=== PATIENT | male | born 1965 | race Caucasian/White ===

== ENCOUNTER 2018-10-17 12:19 | Emergency (ER) | payer SELFPAY ==
[2018-10-17 12:36] VITALS: BP 140/83
--- NOTE | 2018-10-17 14:14 | ED ---
Upper Extremity Pain - HPI Summary HPI Summary: 52 yr old male with right elbow trauma a week ago. He fell directly on his left olecrenon against a house when breaking his fall. 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 Over the past week he has had progressive swelling of the forearm, and hand and bruising tracking down the arm and up the back of the medial tricep area. No numbness, tingling, weakness in his right hand - History of Current Complaint Chief Complaint: UCUpperExtremity Stated Complaint: FALL,RIGHT ARM CONCERN - Allergies/Home Medications Allergies/Adverse Reactions: Allergies Allergy/AdvReac Type Severity Reaction Status Date / Time egg Allergy Hives Verified 10/17/18 12:30 Home Medications: Home Medications NK [No Home Medications Reported] 10/17/18 [History Confirmed 10/17/18] PMH/Surg Hx/FS Hx/Imm Hx Infectious Disease History: No Infectious Disease History: Denies: Traveled Outside the [place] in Last 30 Days - Family History Known Family History: Positive: None - Social History Occupation: Employed Full-time Lives: With Family Alcohol Use: Occasionally Substance Use Type: Reports: None Smoking Status (MU): Heavy Every Day Tobacco Smoker Type: Cigarettes Amount Used/How Often: 1 PPD Review of Systems Constitutional: Negative Positive: Other - trauma elbow All Other Systems Reviewed And Are Negative: Yes Physical Exam Triage Information Reviewed: Yes Vital Signs On Initial Exam: Initial Vitals Temp Pulse Resp BP Pulse Ox 97.4 F 70 16 140/83 99 10/17/18 12:31 10/17/18 12:31 10/17/18 12:31 10/17/18 12:31 10/17/18 12:31 Vital Signs Reviewed: Yes Appearance: Positive: Well-Appearing, No Pain Distress Skin: Positive: Warm, Skin Color Reflects Adequate Perfusion, Other - bruising to lower right arm, forearm and hand medially primarily. Eyes: Positive: EOMI ENT: Positive: Normal ENT inspection Neck: Positive: Nontender Respiratory/Lung Sounds: Positive: Clear to Auscultation, Breath Sounds Present Cardiovascular: Positive: RRR, Pulses are Symmetrical in both Upper and Lower Extremities. Negative: Murmur Abdomen Description: Negative: Distended Musculoskeletal: Positive: Other - right elbow with tenderness over medial olecrenon, and extensive STS as well as down the forearm and into hand and up the medial back of tricep. He has intact pulses, motor and sensation in the right hand. He has intact two point discrimination in finger right hand all five digits. He has intact supination and pronation right elbow. Flex and extend limited by edema. Neurological: Positive: Sensory/Motor Intact, Alert, Oriented to Person Place, Time, CN Intact II-III, Normal Gait, Speech Normal Psychiatric: Positive: Normal - Peterson Coma Scale Best Eye Response: 4 - Spontaneous Best Motor Response: 6 - Obeys Commands Best Verbal Response: 5 - Oriented Coma Scale Total: 15 Diagnostics - Vital Signs Vital Signs Temp Pulse Resp BP Pulse Ox 10/17/18 12:31 97.4 F 70 16 140/83 99 - Laboratory Lab Statement: Any lab studies that have been ordered have been reviewed, and results considered in the medical decision making process. - Radiology right elbow and forearm. Radiology Interpretation Completed By: Radiologist - No acute Fx but soft tissue swelling present. - Additional Comments Diagnostic Additional Comments: US of the right arm without DVT. DR Wilhelm the radiologist called me concerned for small avulsion chips medial olecrenon that could be from a partial tricep tendon avulsion off olecrenon. Course/Dx - Course Course Of Treatment: 52 yr old with possible tricep tendon partial avulsion off the olecrenon with STS, hematoma. Case DW Dr Tomlin, Ortho hand surgeon and the patient is going right to his office for evaluation. - Diagnoses Provider Diagnoses: Triceps tendon rupture, Hematoma of arm Discharge - Sign-Out/Discharge Documenting (check all that apply): Patient Departure All imaging exams completed and their final reports reviewed: Yes - Discharge Plan Condition: Good Disposition: HOME Patient Education Materials: Hypertension (ED), Tendon Rupture (ED), Hematoma ( ED) Referrals: No Primary Care Phys,NOPCP [Primary Care Provider] - Mark Anthony Gonzalez MD [Medical Doctor] - (GO to this office now after discharge. Dr Tomlin is waiting for your to evaluate you further. ) Additional Instructions: Go to see Dr Tomlin now after leaving here. - Billing Disposition and Condition Condition: GOOD Disposition: Home
== END 2018-10-17 14:24 | disposition home or self-care (01) ==
LOC: UCCORT 12:19
DX: S46.311A Strain of muscle, fascia and tendon of triceps, right arm, initial encounter (principal); S50.01XA Contusion of right elbow, initial encounter; F17.210 Nicotine dependence, cigarettes, uncomplicated; Z91.012 Allergy to eggs; W18.30XA Fall on same level, unspecified, initial encounter; Y92.9 Unspecified place or not applicable
CPT/HCPCS: 99201; G0463

== ENCOUNTER 2018-10-23 10:23 | Day surgery (SDC) | payer SELFPAY ==
[~2018-10-23 10:23] MED LIST: Buffered Lidocaine 1% SYRIN* 1 ML/SYRINGE INTRADERM ONE; Dexamethasone TAB* 4 MG ONE; Dexamethasone TAB* 4 MG PO ONE; DiMENhydriNATE IV* 50 MG/ML VIAL IV PUSH PRN; Famotidine IV* 10 MG/ML 2 ML (20 mg) IV ONE; Famotidine IV* 10 MG/ML 2 ML (20 mg) ONE; Lactated Ringers 1000 ML Bag* 1,000 ML IV SCH; Morphine VIAL* 4 MG/ML VIAL (1 ml vial) IV PRN; Naloxone* 0.4 MG/ML 1 ML VIAL IV PRN; Ondansetron ODT TAB* 4 MG ONE; Ondansetron TAB* 4 MG PO ONE; PROCHLORPERAZINE INJ 5 MG/ML 2 ML VIAL IV PRN; fentaNYL* 50 MCG/ML 2 ML VIAL (100 MCG VIAL) IV PRN; oxyCODONE/Acetamin 5/325 MG* TAB PO PRN
[2018-10-23] MEDS ORDERED: ceFAZolin 2 GM PREMIX in ORs 2 GM/50 ML BAG IVPB ONE (10:34)
[2018-10-23] MEDS ORDERED: fentaNYL* 50 MCG/ML 2 ML VIAL (100 MCG VIAL) ONE ×2 (11:40→12:51)
[2018-10-23] MEDS ORDERED: Atracurium* 10 MG/ML 10 ML VIAL ONE (11:40)
[2018-10-23] MEDS ORDERED: Midazolam* 1 MG/ML 5 ML VIAL (5 MG) ONE (11:40)
[2018-10-23] MEDS ORDERED: ROPIVACAINE 5 MG/ML 30 ML BTL (0.5%) ONE (12:19)
[2018-10-23] MEDS ORDERED: Ketorolac INJ* 30 MG/ML 1 ML VIAL ONE (12:51)
[2018-10-23] MEDS ORDERED: Propofol* 10 MG/ML 20 ML BTL ONE (12:51)
[2018-10-23] MEDS ORDERED: Morphine INJ* 10 MG/ML 1 ML CARPUJECT ONE (13:31)
[2018-10-23] MEDS ORDERED: HYDROcodone/ACETAMIN 5-325 MG* 1 TAB ONE (14:55)
[2018-10-23 15:41] VITALS: BP 148/87
--- NOTE | 2018-10-23 20:32 | OP ---
DATE OF OPERATION: 10/23/18 - [facility] DATE OF : 61 SURGEON: Narinder Tomlin MD ACADEMIC REGISTRAR: ELVA Campbell. An optometry assistant was needed for the entirety of the procedure to aid in positioning of the arm and retraction. ANESTHESIOLOGIST: Dr. Alcantar. ANESTHESIA: General. PRE-OP DIAGNOSIS: Right triceps tendon retracted tear. POST-OP DIAGNOSIS: Right triceps tendon retracted tear. OPERATIVE PROCEDURE: Repair of right triceps tendon. INDICATIONS: Zeke had the triceps rupture when he slipped and fell on the ice on 10/09/18. He had some swelling and then he had more swelling about a week after that and he lost the ability to extend his elbow. I diagnosed him in the office with triceps tendon tear and we came to the operating room for repair. ESTIMATED BLOOD LOSS: 20 mL. COMPLICATIONS: None. FINDINGS: See above and below. DESCRIPTION OF PROCEDURE: Zeke was seen in the preoperative holding area. The correct side, site, and procedure were identified. We came back to the operating room. He was positioned in the lateral decubitus position with the arm draped over an arm merrill. The bony prominences and nerves were well padded. The arm was then prepped and draped in the usual fashion. A time-out was performed. The arm was exsanguinated with the Esmarch and the tourniquet was inflated to 250 mmHg. I had used a sterile tourniquet. A midline posterior incision was made over the elbow. We dissected down to the subcutaneous tissue until the tear was encountered. There was a little bit of radial side of fibers that remained, more ulnar side of fibers were completely torn off and very much retracted, and there was a longitudinal split between the fibers that remained attached and was torn off and retracted. All of the hematoma was debrided off with a curette and irrigation and suction until I could visualize what I was dealing with. I debrided the footprint of the triceps tendon sharply and then with the curette and then the bur until a good bleeding bone ready to receive a tendon repair. I went ahead and freshened up the end of my triceps tendon and secured it with an Allis clamp initially while I took a #2 FiberWire and performed a Krackow whipstitch up the last 8 to 10 cm of the tendon. I then performed a second Krackow stitch just ulnar to the first one and then lastly, the more deep fibers were mostly torn off as well, but had not retracted as there were more fibers left attached. I performed a third whipstitch of the deep tendon as well. I made three bone tunnels using a 2.0-mm drill bit starting in the footprint of the triceps and then exiting out the ulnar shaft posteriorly. I used Hewson suture passer followed by an 0 Prolene suture to suture shuttle the tails of my FiberWire down through the appropriate bone tunnel. The elbow was then brought into extension. I first tied off the FiberWire that was whipstitched up into the deep part of the tendon and brought this down to the bone and tied off the suture. Next, I pulled good tension on one set of FiberWire sutures and while I tied off the other set, I used nice square knots. The additional FiberWire was then tied down. The triceps tendon was brought down into excellent opposition to its footprint. The arm was definitely tight out in extension and I could flex it to about 80 or 90 degrees at the elbow before I got any gapping. I took an 0 Vicryl suture and sutured the longitudinal split in the tendon together with figure-of- eight sutures. I then augmented my repair with some superficial [id number] sewing the edge of the distal tendon down to the adjacent soft tissue. The 0 Vicryl suture was also used to close the periosteum over the proximal ulna to cover my FiberWire knots. The 3-0 Vicryl was used to reapproximate subcutaneous tissue and then the skin was closed with toñito. 0.5% ropivacaine was infiltrated on, on the operative area. The wound was dressed with Xeroform, 4x4s, ABDs, and then a long arm anterior slab splint was placed with the arm in 30 degrees of flexion. Tourniquet was deflated, the hand pinked up immediately. He was taken to the recovery room in stable condition. [id number]/[facility] #: [id number] YAMILET
== END 2018-10-23 15:42 | disposition home or self-care (01) ==
LOC: OREAST 10:23
PROVIDERS: ATTEND Orthopaedic Surgery Hand Surgery
DX: S46.301A Unspecified injury of muscle, fascia and tendon of triceps, right arm, initial encounter (principal); F17.210 Nicotine dependence, cigarettes, uncomplicated
CPT/HCPCS: A9270-GY; J0690; J1885; J2250; J2270; J2704; J2795; J3010; J8540